=== PATIENT | female | born 1960 | race Caucasian/White ===

== ENCOUNTER 2017-01-28 22:13 | Emergency (ER) | payer OTHER, BC, MEDICARE ==
[~2017-01-28] VITALS: Ht 157.5 cm; Wt 56.7 kg
[~2017-01-28 22:13] MED LIST: CLOB15CR2 TP; DESO15OI3 TP; DULO20CA17 PO; FLUO60SO2 TP; FLUR50TA PO; GABA-585 PO; HYDR200T PO; HYDR473S51 PO; NAPR250T2 PO; PRED1TAB3 PO; RANI150T6 PO
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
[2017-01-28] MEDS ORDERED: MORPHINE SULFATE 4 MG/ML DISP.SYRIN. IV/SQ PRN (23:15)
[2017-01-28] MEDS ORDERED: ONDANSETRON PF 4 MG/2 ML VIAL. IV ONE (23:30)
[2017-01-28] MEDS ORDERED: IV NORMAL SALINE 1000ML BAG 1,000 ML IV SCH (23:30)
[2017-01-29 00:16] LABS: WHITE BLOOD COUNT 5.2 x10^3/uL (4.0-11.0)
[2017-01-29 00:17] LABS: BASO # 0.2 x10^3/uL (0.0-0.2); BASO % 3 % (0-3); EOS % 14 % (0-3); HEMOGLOBIN 11.8 g/dL (12.0-15.5); LYMPH # 1.2 x10^3/uL (1.0-4.8); LYMPH % 23 % (24-48); MEAN CORPUSCULAR HEMOGLOBIN 28 pg (25-35); MEAN CORPUSCULAR HGB CONC 31 g/dL (31-37); MEAN CORPUSCULAR VOLUME 90 fL (79-100); MONO % 11 % (0-9); NEUT % 48 % (31-73); PLATELET COUNT 172 x10^3/uL (140-400); RED BLOOD COUNT 4.23 x10^6/uL (3.50-5.40); RED CELL DISTRIBUTION WIDTH 13.5 % (11.5-14.5)
[2017-01-29 00:26] LABS: CALCIUM 8.7 mg/dL (8.5-10.1); CREATININE 0.7 mg/dL (0.6-1.0); GFR 86.6; POTASSIUM 3.3 mmol/L (3.5-5.1)
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
[2017-01-29] MEDS ORDERED: IBUP-1027 PO (02:03)
[2017-01-29] MEDS ORDERED: HYDR-971 PO (02:03)
[2017-01-29 02:29] VITALS: BP 108/72
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
== END 2017-01-29 02:40 | disposition home or self-care (01) ==
LOC: ER 22:13
DX: S16.1XXA Strain of muscle, fascia and tendon at neck level, initial encounter (principal); S29.012A Strain of muscle and tendon of back wall of thorax, initial encounter; S49.92XA Unspecified injury of left shoulder and upper arm, initial encounter; M25.511 Pain in right shoulder; R51 Headache; I10 Essential (primary) hypertension; M06.9 Rheumatoid arthritis, unspecified; H54.0 Blindness, both eyes; F12.10 Cannabis abuse, uncomplicated; Z88.0 Allergy status to penicillin; V49.50XA Passenger injured in collision with unspecified motor vehicles in traffic accident, initial encounter; Y93.89 Activity, other specified; Y92.410 Unspecified street and highway as the place of occurrence of the external cause; Y99.8 Other external cause status
CPT/HCPCS: 36415; 70450; 71010; 72125; 72128; 80048; 85027; 96361; 96374; 96375; 99285; J2270; J2405; J7030

== ENCOUNTER 2017-07-17 21:26 | Inpatient (IN) | payer BC, MEDICARE ==
[~2017-07-17] VITALS: Ht 157.5 cm; Wt 51.7 kg
[~2017-07-17 21:26] MED LIST changes: +HYDR-971 PO; +IBUP-1027 PO; -NAPR250T2 PO; +NAPR250T6 PO
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
[2017-07-17] MEDS ORDERED: MORPHINE SULFATE 2 MG/ML DISP.SYRIN. IV/SQ PRN (21:45)
[2017-07-17] MEDS ORDERED: IPRATRPIUM/ALBUTEROL 0.5/2.5MG 3 ML NEBU. NEB ONE (22:00)
[2017-07-17] MEDS ORDERED: ONDANSETRON PF 4 MG/2 ML VIAL. IV ONE (22:00)
[2017-07-17] MEDS ORDERED: IV NORMAL SALINE 1000ML BAG 1,000 ML IV SCH (22:00)
[2017-07-17 22:07] LABS: BASO # 0.1 x10^3/uL (0.0-0.2); BASO % 1 % (0-3); EOS % 3 % (0-3); HEMOGLOBIN 12.1 g/dL (12.0-15.5); LYMPH # 0.7 x10^3/uL (1.0-4.8); LYMPH % 10 % (24-48); MEAN CORPUSCULAR HEMOGLOBIN 28 pg (25-35); MEAN CORPUSCULAR HGB CONC 32 g/dL (31-37); MEAN CORPUSCULAR VOLUME 89 fL (79-100); MONO % 14 % (0-9); NEUT % 71 % (31-73); PLATELET COUNT 221 x10^3/uL (140-400); RED BLOOD COUNT 4.26 x10^6/uL (3.50-5.40); RED CELL DISTRIBUTION WIDTH 14.1 % (11.5-14.5); WHITE BLOOD COUNT 6.8 x10^3/uL (4.0-11.0)
[2017-07-17 22:18] LABS: PROTHROMBIN TIME PATIENT 12.7 SEC (11.7-14.0)
[2017-07-17 22:20] LABS: CALCIUM 9.4 mg/dL (8.5-10.1); CREATININE 0.9 mg/dL (0.6-1.0); GFR 64.5; POTASSIUM 3.3 mmol/L (3.5-5.1)
[2017-07-17 22:27] LABS: ALBUMIN 3.7 g/dL (3.4-5.0); TOTAL BILIRUBIN 0.5 mg/dL (0.2-1.0); TOTAL PROTEIN 7.3 g/dL (6.4-8.2)
[2017-07-17 22:34] LABS: CKMB MASS 0.6 ng/mL (0.0-3.6)
[2017-07-17] MEDS ORDERED: CONTRAST GIVEN MC PRN (22:45)
[2017-07-17] MEDS ORDERED: IOHEXOL 300 MG/ML 75 ML VIAL IV ONE (23:00)
[2017-07-18] VITALS (8 sets, daily range): BP systolic 90–155; BP diastolic 60–97
[2017-07-18] MEDS ORDERED: IPRATRPIUM/ALBUTEROL 0.5/2.5MG 3 ML NEBU. NEB ONE
--- NOTE | 2017-07-18 00:16 | RAD ---
CT chest, abdomen and pelvis with contrast HISTORY: Shortness of breath, chest pain, left-sided abdominal pain TECHNIQUE: Helical CT imaging of the chest, abdomen and pelvis with 75 mL Omnipaque 300 intravenous contrast. Chest findings: Pulmonary vessels, thoracic aorta and esophagus are unremarkable. Heart size is normal. No adenopathy in the chest. Discoid atelectasis of the lower lobes and inferior lingula. Mild dependent groundglass density left upper lobe and medial right lung apex likely additional areas of atelectasis. No pleural effusions. Bones unremarkable. Abdomen findings: At segment 4A of the liver there is a 2 cm hypodense lesion with eccentric nodular hypervascular enhancement. 1.5 cm indeterminate hypodense lesion of the spleen. Left renal midpole 1 cm hypodense lesion. Right kidney, adrenal glands, gallbladder, pancreas unremarkable. No bowel obstruction or inflammation. Moderate volume of stool within the colon. Appendix is negative. No abdominal fluid or adenopathy. Bones unremarkable. Pelvis findings: Fibroid uterus. Ovaries poorly visualized obscured by surrounding bowel loops. Urinary bladder wall is thickened and there may be mild edema. Layering density likely contrast within the bladder. Rectum and bones are unremarkable. Mild changes of femoral head osteonecrosis. IMPRESSION: 1. Urinary bladder wall thickening and edema likely cystitis. 2. The appendix is negative. 3. Indeterminate 2 cm hypodense lesion of the liver with eccentric nodular enhancement, possibly a hemangioma. Additional nonspecific hypodense lesions of the spleen and left kidney are present. 4. Fibroid uterus. 5. No acute process in the chest. Exposure: One or more of the following individualized dose reduction techniques were utilized for this examination: 1. Automated exposure control 2. Adjustment of the mA and/or kV according to patient size 3. Use of iterative reconstruction technique Electronically signed by: Khanh Kennedy MD (07/18/2017 12:13 AM) [facility]
[2017-07-18] MEDS ORDERED: ONDANSETRON PF 4 MG/2 ML VIAL. IV PRN ×2 (00:30→08:30)
[2017-07-18] MEDS ORDERED: MORPHINE SULFATE 2 MG/ML DISP.SYRIN. IV PRN (00:30)
[2017-07-18] MEDS ORDERED: FUROSEMIDE 40 MG/4 ML VIAL. IVP ONE (00:30)
[2017-07-18] MEDS ORDERED: BRIM5DRO3 EACHEYE (02:51)
[2017-07-18] MEDS ORDERED: [UNRECOGNIZED DRUG - CODE] PO (02:51)
[2017-07-18] MEDS ORDERED: ALEN70TA5 PO (02:51)
[2017-07-18] MEDS ORDERED: CHON250C PO (02:51)
[2017-07-18] MEDS ORDERED: LEFLUNOMIDE20 MG PO (02:51)
[2017-07-18] MEDS ORDERED: GLUC100018 PO (02:51)
[2017-07-18] MEDS ORDERED: AMLO5TAB2 PO (02:51)
[2017-07-18] MEDS ORDERED: FLUO10TA PO (02:51)
[2017-07-18] MEDS ORDERED: CALC600T4 PO (02:51)
[2017-07-18] MEDS ORDERED: MULT1TAB52 PO (02:51)
[2017-07-18] MEDS ORDERED: HYDR-2766 PO (02:51)
[2017-07-18] MEDS ORDERED: FOLI1TAB16 PO (02:51)
[2017-07-18] MEDS ORDERED: GABA800T2 PO (02:51)
--- NOTE | 2017-07-18 06:14 | EKG ---
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
[2017-07-18] MEDS: IPRATRPIUM/ALBUTEROL 0.5/2.5MG 3 ML NEBU. NEB SCH ×4 (07:19→21:07)
--- NOTE | 2017-07-18 07:37 | RAD ---
Indication: Wheezing and cough. Technique: Upright portable chest radiograph was obtained and compared to a study from January 29, 2017. Findings: The lungs are clear. There is no pleural effusion. Allowing for portable technique, the heart is not enlarged and there is no heart failure. Bony structures are intact, mild curvature of the thoracic and lumbar spine, reverse S-shaped. Impression: No acute thoracic findings.
[2017-07-18] MEDS ORDERED: HYDROcodone/APAP 5/325MG 1 TAB TABLET PO PRN (08:30)
[2017-07-18] MEDS ORDERED: IBUPROFEN 400 MG TABLET. PO PRN (08:30)
[2017-07-18] MEDS ORDERED: HYDROcodone/APAP 10/325 1 TAB TABLET PO PRN (08:30)
[2017-07-18] MEDS ORDERED: NON FORMULARY ITEM (Alendronate Sodium 70 MG) PO SCH (09:00)
[2017-07-18] MEDS ORDERED: [UNRECOGNIZED DRUG - OTHER] PO SCH (09:00)
[2017-07-18] MEDS ORDERED: NON FORMULARY ITEM (Multivitamin (Multivitamins) 1 TAB) PO SCH (09:00)
[2017-07-18] MEDS ORDERED: NON FORMULARY ITEM (Glucosamine Sulfate 2KCL (Glucosamine) 1,000 MG) PO SCH (09:00)
--- NOTE | 2017-07-18 09:00 | PDOC1 ---
History and Physical Date of Admission Date of Admission DATE: 07/18/17 TIME: 08:52 Identification/Chief Complaint Chief Complaint abd pain, chronic, chest pains. 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 BUt she also complains of abd pain that seems to be worse 15-20 mins after a meal. She claims she has been referred to GI by her PCP Dr. Lorenz and c scope done which was not completed? or maybe benign findings, She was told by PCP to avoid dairy products, She still gets the "groaning in her abd" and she feels sometimes the leftside is tense ir fluid filled. CT scan shows some hemangioma, liver, signs of chronic cystitis and the rest unimpressive. She denies recurrent UTI that she knows of. LIpase 800s, and was admitted for "pancreatits". NO nausea, emesis, weight loss , So far no diarrhea reported. WIth regards to CP, some cough, pleuritic, denies fever, she points towards her throat Past Medical History Cardiovascular: HTN GI: GERD Psych: Depression Past Surgical History Past Surgical History: No pertinent history Family History Family History: No Significant Social History Smoke: No ALCOHOL: none Drugs: None Current Problem List Problem List Problems Medical Problems: (1) Abdominal pain Status: Acute (2) Dyspnea and respiratory abnormalities Status: Acute (3) Pancreatitis Status: Acute Problems: Current Medications Current Medications Current Medications Morphine Sulfate 2 mg PRN Q15MIN PRN IV/SQ PAIN GREATER THAN 3/10; Start 07/17 at 21:45; Stop 07/18/17 at 21:44 Sodium Chloride 1,000 ml @ 100 mls/hr Q10H IV Last administered on 07/17/17 21:54; Start 07/17/17 at 22:00; Stop 07/18/17 at 07:59; Status DC Ondansetron HCl (Zofran) 4 mg 1X ONCE IV Last administered on 07/17/17 21:54 ; Start 07/17/17 at 22:00; Stop 07/17/17 at 22:01; Status DC Albuterol/ Ipratropium (Duoneb) 3 ml 1X ONCE NEB Last administered on 21:57; Start 07/17/17 at 22:00; Stop 07/17/17 at 22:01; Status DC Iohexol (Omnipaque 300 Mg/ml) 75 ml 1X ONCE IV Last administered on 23:24; Start 07/17/17 at 23:00; Stop 07/17/17 at 23:01; Status DC Info (Do NOT chart on this entry -- for MONITORING) 1 each PRN DAILY PRN MC SEE COMMENTS; Start 07/17/17 at 22:45; Stop 07/19/17 at 22:44 Albuterol/ Ipratropium (Duoneb) 3 ml 1X ONCE NEB Last administered on 23:45; Start 07/18/17 at 00:00; Stop 07/18/17 at 00:01; Status DC Furosemide (Lasix) 40 mg 1X ONCE IVP Last administered on 07/18/17 00:39; Start 07/18/17 at 00:30; Stop 07/18/17 at 00:31; Status DC Ondansetron HCl (Zofran) 4 mg PRN Q8HRS PRN IV NAUSEA/VOMITING; Start at 00:30; Stop 07/18/17 at 08:27; Status DC Morphine Sulfate 2 mg PRN Q2HR PRN IV SEVERE PAIN Last administered on 04:01; Start 07/18/17 at 00:30; Stop 07/19/17 at 00:29 Albuterol/ Ipratropium (Duoneb) 3 ml RTQID NEB Last administered on 07/18/17 07:19; Start 07/18/17 at 08:00; Stop 07/19/17 at 07:59 Ondansetron HCl (Zofran) 4 mg PRN Q6HRS PRN IV NAUSEA/VOMITING; Start at 08:30; Stop 07/19/17 at 08:29 Amlodipine Besylate (Norvasc) 5 mg DAILY PO ; Start 07/18/17 at 09:00 Folic Acid (Folic Acid) 1 mg DAILY PO ; Start 07/18/17 at 09:00 Acetaminophen/ Hydrocodone Bitart (Lortab 10/325) 1 tab PRN Q6HRS PRN PO PAIN; Start 07/18/17 at 08:30 Acetaminophen/ Hydrocodone Bitart (Lortab 5/325) 1 tab TID PRN PO PAIN; Start 07/18/17 at 08:30 Ibuprofen (Motrin) 400 mg Q6HRS PRN PO INFLAMMATION; Start 07/18/17 at 08:30 Non-Formulary Medication 70 mg WEEKLY PO ; Start 07/18/17 at 09:00; Status UNV Brimonidine Tartrate (Alphagan) 1 drop BID OU ; Start 07/18/17 at 09:00 Calcium Carbonate/ Glycine (Oscal) 500 mg DAILY PO ; Start 07/18/17 at 09:00 Non-Formulary Medication 250 mg DAILY PO ; Start 07/18/17 at 09:00; Status UNV Fluoxetine HCl (PROzac) 10 mg DAILY PO ; Start 07/18/17 at 09:00 Gabapentin (Neurontin) 800 mg DAILY PO ; Start 07/18/17 at 09:00 Non-Formulary Medication 1,000 mg DAILY PO ; Start 07/18/17 at 09:00; Status UNV Leflunomide (Arava) 20 mg DAILY PO ; Start 07/18/17 at 09:00 Multivitamins (Thera M Plus) 1 tab DAILY PO ; Start 07/18/17 at 09:00 Non-Formulary Medication 1 tab DAILY PO ; Start 07/18/17 at 09:00; Status UNV Active Scripts Active Ibuprofen 400 Mg Tablet 400 Mg PO Q6HRS PRN [place] 5-325 Tablet (Acetaminophen/Hydrocodone Bitart) 1 Each Tablet 1-2 Tab PO Q4-6HRS PRN Reported Multivitamins (Multivitamin) 1 Each Tablet 1 Tab PO DAILY Leflunomide 20 Mg Tablet 20 Mg PO DAILY Hydrocodone-Apap 10-325 (Hydrocodone Bit/Acetaminophen) 1 Each Tablet 1 Tab PO PRN Q6HRS PRN Glucosamine (Glucosamine Sulfate 2KCL) 1,000 Mg Tablet 1,000 Mg PO DAILY Gabapentin 800 Mg Tablet 800 Mg PO DAILY Folic Acid 1 Mg Tablet 1 Mg PO DAILY Fluoxetine Hcl 10 Mg Tablet 10 Mg PO DAILY Chondroitin Sulfate (Chondroitin Sulfate A) 250 Mg Capsule 250 Mg PO DAILY Calcium (Calcium Carbonate) 600 Mg Tablet 600 Mg PO DAILY Hair, Skin and Nails Tablet (Multivit-Min/Iron/Folic/Ptg436) 1 Each Tablet 1 Each PO DAILY Amlodipine Besylate 5 Mg Tablet 5 Mg PO DAILY Alphagan P (Brimonidine Tartrate) 5 Ml Drops 1 Drop EACHEYE BID Alendronate Sodium 70 Mg Tablet 70 Mg PO WEEKLY Allergies Allergies: Coded Allergies: Penicillins (Unverified Allergy, Severe, Swelling, 02/16/15) ROS Review of System as per HPI, all else is neg Physical Exam General: Alert, Oriented X3, Cooperative, No acute distress HEENT: Atraumatic, PERRLA, EOMI Lungs: Clear to auscultation, Normal air movement Heart: S1S2, RRR, no thrills, no rubs, no gallops, no murmurs Cardiovascular: S1 Abdomen: Soft, No hepatosplenomegaly Rectal Exam: not examined PELVIC: Nml ext genitalia Extremities: No clubbing, No cyanosis, No edema, Normal pulses, No tenderness/ swelling Skin: No rashes, No breakdown, No significant lesion Neuro: Normal gait, Normal speech, Strength at 5/5 X4 ext, Normal tone, Sensation intact, Cranial nerves 3-12 NL, Reflexes 2+ Psych/Mental Status: Mental status NL, Mood NL Vitals Vitals Vital Signs Date Time Temp Pulse Resp B/P (MAP) Pulse Ox O2 Delivery O2 Flow Rate FiO2 07/18/17 07:23 93 Nasal Cannula 1.5 07/18/17 07:13 98.2 98 16 109/76 (87) 98.2 Labs Labs Laboratory Tests Test 07/17/17 22:00 07/18/17 06:15 White Blood Count 6.8 x10^3/uL (4.0-11.0) Red Blood Count 4.26 x10^6/uL (3.50-5.40) Hemoglobin 12.1 g/dL (12.0-15.5) Hematocrit 38.0 % (36.0-47.0) Mean Corpuscular Volume 89 fL (79-100) Mean Corpuscular Hemoglobin 28 pg (25-35) Mean Corpuscular Hemoglobin Concent 32 g/dL (31-37) Red Cell Distribution Width 14.1 % (11.5-14.5) Platelet Count 221 x10^3/uL (140-400) Neutrophils (%) (Auto) 71 % (31-73) Lymphocytes (%) (Auto) 10 % (24-48) Monocytes (%) (Auto) 14 % (0-9) Eosinophils (%) (Auto) 3 % (0-3) Basophils (%) (Auto) 1 % (0-3) Neutrophils # (Auto) 4.9 x10^3uL (1.8-7.7) Lymphocytes # (Auto) 0.7 x10^3/uL (1.0-4.8) Monocytes # (Auto) 1.0 x10^3/uL (0.0-1.1) Eosinophils # (Auto) 0.2 x10^3/uL (0.0-0.7) Basophils # (Auto) 0.1 x10^3/uL (0.0-0.2) Prothrombin Time 12.7 SEC (11.7-14.0) Prothromb Time International Ratio 1.0 (0.8-1.1) Activated Partial Thromboplast Time 29 SEC (24-38) Sodium Level 143 mmol/L (136-145) Potassium Level 3.3 mmol/L (3.5-5.1) Chloride Level 105 mmol/L (98-107) Carbon Dioxide Level 30 mmol/L (21-32) Anion Gap 8 (6-14) Blood Urea Nitrogen 10 mg/dL (7-20) Creatinine 0.9 mg/dL (0.6-1.0) Estimated GFR (Cockcroft-Gault) 64.5 BUN/Creatinine Ratio 11 (6-20) Glucose Level 105 mg/dL (70-99) Calcium Level 9.4 mg/dL (8.5-10.1) Total Bilirubin 0.5 mg/dL (0.2-1.0) Aspartate Amino Transf (AST/SGOT) 15 U/L (15-37) Alanine Aminotransferase (ALT/SGPT) 15 U/L (14-59) Alkaline Phosphatase 92 U/L (46-116) Creatine Kinase 75 U/L (26-192) Creatine Kinase MB (Mass) 0.6 ng/mL (0.0-3.6) Creatine Kinase MB Relative Index 0.8 % (0-4) Troponin I Quantitative < 0.017 ng/mL (0.000-0.055) < 0.017 ng/mL (0.000-0.055) HL-Xay-F-Type Natriuretic Peptide 672 pg/mL (0-124) Total Protein 7.3 g/dL (6.4-8.2) Albumin 3.7 g/dL (3.4-5.0) Albumin/Globulin Ratio 1.0 (1.0-1.7) Lipase 820 U/L (73-393) Laboratory Tests Test 07/17/17 22:00 07/18/17 06:15 White Blood Count 6.8 x10^3/uL (4.0-11.0) Red Blood Count 4.26 x10^6/uL (3.50-5.40) Hemoglobin 12.1 g/dL (12.0-15.5) Hematocrit 38.0 % (36.0-47.0) Mean Corpuscular Volume 89 fL (79-100) Mean Corpuscular Hemoglobin 28 pg (25-35) Mean Corpuscular Hemoglobin Concent 32 g/dL (31-37) Red Cell Distribution Width 14.1 % (11.5-14.5) Platelet Count 221 x10^3/uL (140-400) Neutrophils (%) (Auto) 71 % (31-73) Lymphocytes (%) (Auto) 10 % (24-48) Monocytes (%) (Auto) 14 % (0-9) Eosinophils (%) (Auto) 3 % (0-3) Basophils (%) (Auto) 1 % (0-3) Neutrophils # (Auto) 4.9 x10^3uL (1.8-7.7) Lymphocytes # (Auto) 0.7 x10^3/uL (1.0-4.8) Monocytes # (Auto) 1.0 x10^3/uL (0.0-1.1) Eosinophils # (Auto) 0.2 x10^3/uL (0.0-0.7) Basophils # (Auto) 0.1 x10^3/uL (0.0-0.2) Prothrombin Time 12.7 SEC (11.7-14.0) Prothromb Time International Ratio 1.0 (0.8-1.1) Activated Partial Thromboplast Time 29 SEC (24-38) Sodium Level 143 mmol/L (136-145) Potassium Level 3.3 mmol/L (3.5-5.1) Chloride Level 105 mmol/L (98-107) Carbon Dioxide Level 30 mmol/L (21-32) Anion Gap 8 (6-14) Blood Urea Nitrogen 10 mg/dL (7-20) Creatinine 0.9 mg/dL (0.6-1.0) Estimated GFR (Cockcroft-Gault) 64.5 BUN/Creatinine Ratio 11 (6-20) Glucose Level 105 mg/dL (70-99) Calcium Level 9.4 mg/dL (8.5-10.1) Total Bilirubin 0.5 mg/dL (0.2-1.0) Aspartate Amino Transf (AST/SGOT) 15 U/L (15-37) Alanine Aminotransferase (ALT/SGPT) 15 U/L (14-59) Alkaline Phosphatase 92 U/L (46-116) Creatine Kinase 75 U/L (26-192) Creatine Kinase MB (Mass) 0.6 ng/mL (0.0-3.6) Creatine Kinase MB Relative Index 0.8 % (0-4) Troponin I Quantitative < 0.017 ng/mL (0.000-0.055) < 0.017 ng/mL (0.000-0.055) AS-Wjd-K-Type Natriuretic Peptide 672 pg/mL (0-124) Total Protein 7.3 g/dL (6.4-8.2) Albumin 3.7 g/dL (3.4-5.0) Albumin/Globulin Ratio 1.0 (1.0-1.7) Lipase 820 U/L (73-393) VTE Prophylaxis Ordered VTE Prophylaxis Devices: Yes VTE Pharmacological Prophylaxi: Yes Assessment/Plan Assessment/Plan 1. Acute on chronic abd pain, difftls include GERD, PUD? Non ulcer dyspepsia etc - claims worse 15-20 mins after a meal, CT abd unimpressive; get GI 2. CP, pleuritic, non cardiac in nature - monitor for now, cough med,CXR normal , await GI work up,could be GI in etiology -s he motions from her chest going up to her throat 3. BLind from glaucoma 4. Depression NOS 5. HTN, controlled Plan: Resume home meds PT/OT PPI GI consult GOt [id number] IV at er and now is incontinent with urine Supportive cough meds etc Dw RN at bedside and pt - agrees with my plan OK for liquid diet - no evidence acute panc on ct scan Recheck lipase tmr RINA JIMENEZ MD Jul 18, 2017 09:00
[2017-07-18] MEDS: FLUoxetine HCL 10 MG CAPSULE PO SCH (09:22)
[2017-07-18] MEDS: FOLIC ACID 1 MG TABLET. PO SCH (09:22)
[2017-07-18] MEDS: amLODIPine BESYLATE 5 MG TABLET PO SCH (09:23)
[2017-07-18] MEDS: CALCIUM CARBONATE 500 MG TABLET PO SCH (09:23)
[2017-07-18] MEDS: LEFLUNOMIDE 10 MG TABLET. PO SCH (09:25)
[2017-07-18] MEDS: GABAPENTIN 400 MG CAPSULE. PO SCH (09:25)
[2017-07-18] MEDS: MULTIVITAMIN with MINERAL TABLET. PO SCH (09:26)
[2017-07-18] MEDS: BRIMONIDINE 0.2% OPHTH SOLUTION 5ML BOTTLE. OU SCH ×2 (09:26→21:48)
[2017-07-18] MEDS: PANTOPRAZOLE 40 MG TABLET.DR. PO SCH (09:28)
[2017-07-18] MEDS: guaiFENesin DM 200MG/20MG 10 ML SYRUP PO SCH ×4 (09:28→21:48)
--- NOTE | 2017-07-18 11:09 | PDOC2 ---
GI CONSULT Reason For Consult: Constant chronic abd pain HPI: HPI: 57 y/o visually impaired female evaluated in ER for abd pain, admitted. Reports left-sided discomfort for months. Associated vomiting and diarrhea ( one or the other after eating) w/ fluctuating weight and loud "gurgling." Pain improves after stooling and is not necessarily worse after eating. Apparently tried avoidance of dairy, unhelpful. Tums might help. Also describes prepping for colonoscopy but had complications w/ low HR and elevated BP so unclear if procedure actually performed (started at [facility], was transferred to [facility] then saw cardiology @ [facility] as outpt, says event monitor was normal). No previous EGD. No gallbladder, pancreas, or liver history.Denies reflux/ heartburn, dysphagia, constipation. Unsure about hematemesis, hematochezia, or melena w/ blindness. H/o RA and SLE; she's not sure the names of her meds, but per summary on leflunomide. Also note ibuprofen. Labs: notable for elevated lipase (820). CT chest/A/P: (complete report below), note normal esophagus, nonspecific hypodense lesions in liver, spleen, and left kidney, normal pancreas and gallbladder, moderate stool in colon, fibroid uterus, likely cystitis. PMH: PMH: HTN, depression, RA, SLE FH: Family History: No pertinent hx (denies GI cancers) Social History: Smoke: No ALCOHOL: rare Drugs: None ROS: GEN: Denies fevers, chills, sweats HEENT: visually impaired CV: Denies chest pain RESP: Denies shortness of air, cough GI: Per HPI : Denies hematuria, dysuria ENDO: fluctuating weight NEURO: Denies confusion, dizziness MSK: Denies weakness, joint pain/swelling SKIN: Denies jaundice, pruritus Vitals: Vitals: Vital Signs Date Time Temp Pulse Resp B/P (MAP) Pulse Ox O2 Delivery O2 Flow Rate FiO2 07/18/17 10:36 98.6 84 16 150/80 (103) 99 Nasal Cannula 2.0 98.6 Labs: Labs: Laboratory Tests Test 07/17/17 22:00 07/18/17 06:15 White Blood Count 6.8 x10^3/uL (4.0-11.0) Red Blood Count 4.26 x10^6/uL (3.50-5.40) Hemoglobin 12.1 g/dL (12.0-15.5) Hematocrit 38.0 % (36.0-47.0) Mean Corpuscular Volume 89 fL (79-100) Mean Corpuscular Hemoglobin 28 pg (25-35) Mean Corpuscular Hemoglobin Concent 32 g/dL (31-37) Red Cell Distribution Width 14.1 % (11.5-14.5) Platelet Count 221 x10^3/uL (140-400) Neutrophils (%) (Auto) 71 % (31-73) Lymphocytes (%) (Auto) 10 % (24-48) Monocytes (%) (Auto) 14 % (0-9) Eosinophils (%) (Auto) 3 % (0-3) Basophils (%) (Auto) 1 % (0-3) Neutrophils # (Auto) 4.9 x10^3uL (1.8-7.7) Lymphocytes # (Auto) 0.7 x10^3/uL (1.0-4.8) Monocytes # (Auto) 1.0 x10^3/uL (0.0-1.1) Eosinophils # (Auto) 0.2 x10^3/uL (0.0-0.7) Basophils # (Auto) 0.1 x10^3/uL (0.0-0.2) Prothrombin Time 12.7 SEC (11.7-14.0) Prothromb Time International Ratio 1.0 (0.8-1.1) Activated Partial Thromboplast Time 29 SEC (24-38) Sodium Level 143 mmol/L (136-145) Potassium Level 3.3 mmol/L (3.5-5.1) Chloride Level 105 mmol/L (98-107) Carbon Dioxide Level 30 mmol/L (21-32) Anion Gap 8 (6-14) Blood Urea Nitrogen 10 mg/dL (7-20) Creatinine 0.9 mg/dL (0.6-1.0) Estimated GFR (Cockcroft-Gault) 64.5 BUN/Creatinine Ratio 11 (6-20) Glucose Level 105 mg/dL (70-99) Calcium Level 9.4 mg/dL (8.5-10.1) Total Bilirubin 0.5 mg/dL (0.2-1.0) Aspartate Amino Transf (AST/SGOT) 15 U/L (15-37) Alanine Aminotransferase (ALT/SGPT) 15 U/L (14-59) Alkaline Phosphatase 92 U/L (46-116) Creatine Kinase 75 U/L (26-192) Creatine Kinase MB (Mass) 0.6 ng/mL (0.0-3.6) Creatine Kinase MB Relative Index 0.8 % (0-4) Troponin I Quantitative < 0.017 ng/mL (0.000-0.055) < 0.017 ng/mL (0.000-0.055) LX-Imv-Y-Type Natriuretic Peptide 672 pg/mL (0-124) Total Protein 7.3 g/dL (6.4-8.2) Albumin 3.7 g/dL (3.4-5.0) Albumin/Globulin Ratio 1.0 (1.0-1.7) Lipase 820 U/L (73-393) Allergies: Coded Allergies: Penicillins (Unverified Allergy, Severe, Swelling, 02/16/15) Medications: Current Medications Medications (Trade) Dose Ordered Sig/Lobito Route PRN Reason Start Time Stop Time Status Last Admin Dose Admin Sodium Chloride 1,000 ml @ 100 mls/hr Q10H IV 07/17/17 22:00 07/18/17 07:59 DC 07/17/17 21:54 Ondansetron HCl (Zofran) 4 mg 1X ONCE IV 07/17/17 22:00 07/17/17 22:01 DC 07/17/17 21:54 Albuterol/ Ipratropium (Duoneb) 3 ml 1X ONCE NEB 07/17/17 22:00 07/17/17 22:01 DC 07/17/17 21:57 Iohexol (Omnipaque 300 Mg/ml) 75 ml 1X ONCE IV 07/17/17 23:00 07/17/17 23:01 DC 07/17/17 23:24 Albuterol/ Ipratropium (Duoneb) 3 ml 1X ONCE NEB 07/18/17 00:00 07/18/17 00:01 DC 07/17/17 23:45 Furosemide (Lasix) 40 mg 1X ONCE IVP 07/18/17 00:30 07/18/17 00:31 DC 07/18/17 00:39 Morphine Sulfate 2 mg PRN Q2HR PRN IV SEVERE PAIN 07/18/17 00:30 07/19/17 00:29 07/18/17 04:01 Albuterol/ Ipratropium (Duoneb) 3 ml RTQID NEB 07/18/17 08:00 07/19/17 07:59 07/18/17 07:19 Amlodipine Besylate (Norvasc) 5 mg DAILY PO 07/18/17 09:00 07/18/17 09:23 Folic Acid (Folic Acid) 1 mg DAILY PO 07/18/17 09:00 07/18/17 09:22 Brimonidine Tartrate (Alphagan) 1 drop BID OU 07/18/17 09:00 07/18/17 09:26 Calcium Carbonate/ Glycine (Oscal) 500 mg DAILY PO 07/18/17 09:00 07/18/17 09:23 Fluoxetine HCl (PROzac) 10 mg DAILY PO 07/18/17 09:00 07/18/17 09:22 Gabapentin (Neurontin) 800 mg DAILY PO 07/18/17 09:00 07/18/17 09:25 Leflunomide (Arava) 20 mg DAILY PO 07/18/17 09:00 07/18/17 09:25 Multivitamins (Thera M Plus) 1 tab DAILY PO 07/18/17 09:00 07/18/17 09:26 Pantoprazole Sodium (Protonix) 40 mg DAILYAC PO 07/18/17 09:00 07/18/17 09:28 Guaifenesin (Robitussin Dm) 10 ml QID PO 07/18/17 09:00 07/18/17 09:28 Imaging: Imaging: CXR Impression: No acute thoracic findings. CT chest/A/P Chest findings: Pulmonary vessels, thoracic aorta and esophagus are unremarkable. Heart size is normal. No adenopathy in the chest. Discoid atelectasis of the lower lobes and inferior lingula. Mild dependent groundglass density left upper lobe and medial right lung apex likely additional areas of atelectasis. No pleural effusions. Bones unremarkable. Abdomen findings: At segment 4A of the liver there is a 2 cm hypodense lesion with eccentric nodular hypervascular enhancement. 1.5 cm indeterminate hypodense lesion of the spleen. Left renal midpole 1 cm hypodense lesion. Right kidney, adrenal glands, gallbladder, pancreas unremarkable. No bowel obstruction or inflammation. Moderate volume of stool within the colon. Appendix is negative. No abdominal fluid or adenopathy. Bones unremarkable. Pelvis findings: Fibroid uterus. Ovaries poorly visualized obscured by surrounding bowel loops. Urinary bladder wall is thickened and there may be mild edema. Layering density likely contrast within the bladder. Rectum and bones are unremarkable. Mild changes of femoral head osteonecrosis. IMPRESSION: 1. Urinary bladder wall thickening and edema likely cystitis. 2. The appendix is negative. 3. Indeterminate 2 cm hypodense lesion of the liver with eccentric nodular enhancement, possibly a hemangioma. Additional nonspecific hypodense lesions of the spleen and left kidney are present. 4. Fibroid uterus. 5. No acute process in the chest. PE: GEN: NAD, up to chair HEENT: visually impaired LUNGS: CTAB HEART: RRR ABD: NABS, S/ND, far left discomfort EXTREMITY: No edema SKIN: No rashes, no jaundice NEURO/PSYCH: A & O 3 A/P: A/P: Left-sided pain, vomiting, diarrhea -ongoing for awhile; pain improves w/ stooling, either has vomiting or diarrhea after eating -CT: nonspecific hypodense lesions in liver, spleen, and left kidney, normal pancreas and gallbladder, moderate stool in colon, fibroid uterus, likely cystitis Elevated lipase CRC screen -prepped for colonoscopy recently, unclear if incomplete or perhaps never actually performed ---> says transferred from [facility] to [facility] w/ HTN and bradycardia Visual impairment, SLE and RA -- Pain is not c/w pancreatitis; however, has autoimmune history and vomiting. Agree w/ PPI. ?diarrhea w/ moderate stool on CT. Will add Miralax PRN. Will check US r/o gallstones as source for elevated lipase. Additionally will check CA19-9, lipid panel, and IgG4. GREG LEMUS Jul 18, 2017 11:09
[2017-07-18] MEDS ORDERED: POLYETHYLENE GLYCOL 3350 17 GM PACKET. PO PRN (11:30)
[2017-07-18 11:37] LABS: CHOLESTEROL/HDL RATIO 1.8
[2017-07-19 03:00] VITALS: BP 119/80
[2017-07-19] MEDS: guaiFENesin DM 200MG/20MG 10 ML SYRUP PO SCH ×2 (06:45→13:48)
[2017-07-19] MEDS: IPRATRPIUM/ALBUTEROL 0.5/2.5MG 3 ML NEBU. NEB SCH (07:08)
[2017-07-19 07:24] VITALS: BP 117/85
--- NOTE | 2017-07-19 08:44 | RAD ---
Indication: Elevated lipase. Vomiting. Technique: Right upper quadrant ultrasound was performed. Comparison is a CT from yesterday. Findings: The visualized pancreas is unremarkable. IVC is patent. The liver is normal in size and echotexture. The lesion noted in the anterior segment of the right hepatic lobe on previous CT was not visualized by ultrasound. Gallbladder is negative. Common bile duct is within normal limits at 4 mm. Right kidney is without hydronephrosis or mass. Impression: 1. No acute abdominal findings. 2. Right hepatic lobe lesion noted by CT was not able to be visualized by ultrasound.
[2017-07-19] MEDS: PANTOPRAZOLE 40 MG TABLET.DR. PO SCH (09:10)
[2017-07-19] MEDS: BRIMONIDINE 0.2% OPHTH SOLUTION 5ML BOTTLE. OU SCH (09:10)
[2017-07-19] MEDS: FOLIC ACID 1 MG TABLET. PO SCH (09:10)
[2017-07-19] MEDS: FLUoxetine HCL 10 MG CAPSULE PO SCH (09:10)
[2017-07-19] MEDS: CALCIUM CARBONATE 500 MG TABLET PO SCH (09:10)
[2017-07-19] MEDS: GABAPENTIN 400 MG CAPSULE. PO SCH (09:10)
[2017-07-19] MEDS: LEFLUNOMIDE 10 MG TABLET. PO SCH (09:10)
[2017-07-19] MEDS: amLODIPine BESYLATE 5 MG TABLET PO SCH (09:10)
[2017-07-19] MEDS: MULTIVITAMIN with MINERAL TABLET. PO SCH (09:11)
[2017-07-19] MEDS ORDERED: MAGNESIUM HYDROXIDE 2,400 MG/30 ML ORAL.SUSP. PO PRN (09:30)
[2017-07-19] MEDS ORDERED: MAGNESIUM HYDROXIDE 2,400 MG/30 ML ORAL.SUSP. PO ONE (09:45)
[2017-07-19] MEDS ORDERED: DOCUSATE SODIUM 100 MG CAPSULE. PO SCH (10:00)
[2017-07-19] MEDS ORDERED: PANT40TA3 PO (10:12)
--- NOTE | 2017-07-19 10:16 | PDOC ---
PROGRESS NOTES Chief Complaint Chief Complaint 1. Acute on chronic abd pain, difftls include GERD, PUD? Non ulcer dyspepsia etc - claims worse 15-20 mins after a meal, CT abd unimpressive; get GI 2. CP, pleuritic, non cardiac in nature - monitor for now, cough med,CXR normal , await GI work up,could be GI in etiology -s he motions from her chest going up to her throat 3. BLind from glaucoma 4. Depression NOS 5. HTN, controlled History of Present Illness History of Present Illness Better today BUt worried about when she gets home, it will happen again Just takes rolaids at home Wants to go home Liapse now normal US normal CA 19-9 pending Says last BM was tuesday bec she has not been eating from adb pain PLAN: Upgrade to reg diet PPI rx in chart Ff up GI as OP Bowel regimen If ok with GI to dc later - im ok with that MAybe bentyl to home? Await GI recs Vitals Vitals Vital Signs Date Time Temp Pulse Resp B/P (MAP) Pulse Ox O2 Delivery O2 Flow Rate FiO2 07/19/17 09:10 83 117/85 07/19/17 07:24 98.5 16 93 Nasal Cannula 2.0 98.5 Physical Exam General: Alert, Oriented X3, Cooperative, No acute distress Abdomen: Soft, No hepatosplenomegaly Extremities: No clubbing, No cyanosis, No edema, Normal pulses, No tenderness/ swelling Skin: No rashes, No breakdown, No significant lesion Labs LABS Laboratory Tests Test 07/18/17 12:20 07/19/17 06:00 Troponin I Quantitative < 0.017 ng/mL (0.000-0.055) Lipase 91 U/L (73-393) Review of Systems Review of Systems abd pain after eating, no cp, soa, emesis or fever Assessment and Plan Assessmemt and Plan Problems Medical Problems: (1) Abdominal pain Status: Acute (2) Dyspnea and respiratory abnormalities Status: Acute (3) Pancreatitis Status: Acute Problems: Comment Review of Relevant I have reviewed the following items poncho (where applicable) has been applied. Labs Laboratory Tests Test 07/17/17 22:00 07/18/17 06:15 07/18/17 12:20 07/19/17 06:00 White Blood Count 6.8 x10^3/uL (4.0-11.0) Red Blood Count 4.26 x10^6/uL (3.50-5.40) Hemoglobin 12.1 g/dL (12.0-15.5) Hematocrit 38.0 % (36.0-47.0) Mean Corpuscular Volume 89 fL (79-100) Mean Corpuscular Hemoglobin 28 pg (25-35) Mean Corpuscular Hemoglobin Concent 32 g/dL (31-37) Red Cell Distribution Width 14.1 % (11.5-14.5) Platelet Count 221 x10^3/uL (140-400) Neutrophils (%) (Auto) 71 % (31-73) Lymphocytes (%) (Auto) 10 % (24-48) Monocytes (%) (Auto) 14 % (0-9) Eosinophils (%) (Auto) 3 % (0-3) Basophils (%) (Auto) 1 % (0-3) Neutrophils # (Auto) 4.9 x10^3uL (1.8-7.7) Lymphocytes # (Auto) 0.7 x10^3/uL (1.0-4.8) Monocytes # (Auto) 1.0 x10^3/uL (0.0-1.1) Eosinophils # (Auto) 0.2 x10^3/uL (0.0-0.7) Basophils # (Auto) 0.1 x10^3/uL (0.0-0.2) Prothrombin Time 12.7 SEC (11.7-14.0) Prothromb Time International Ratio 1.0 (0.8-1.1) Activated Partial Thromboplast Time 29 SEC (24-38) Sodium Level 143 mmol/L (136-145) Potassium Level 3.3 mmol/L (3.5-5.1) Chloride Level 105 mmol/L (98-107) Carbon Dioxide Level 30 mmol/L (21-32) Anion Gap 8 (6-14) Blood Urea Nitrogen 10 mg/dL (7-20) Creatinine 0.9 mg/dL (0.6-1.0) Estimated GFR (Cockcroft-Gault) 64.5 BUN/Creatinine Ratio 11 (6-20) Glucose Level 105 mg/dL (70-99) Calcium Level 9.4 mg/dL (8.5-10.1) Total Bilirubin 0.5 mg/dL (0.2-1.0) Aspartate Amino Transf (AST/SGOT) 15 U/L (15-37) Alanine Aminotransferase (ALT/SGPT) 15 U/L (14-59) Alkaline Phosphatase 92 U/L (46-116) Creatine Kinase 75 U/L (26-192) Creatine Kinase MB (Mass) 0.6 ng/mL (0.0-3.6) Creatine Kinase MB Relative Index 0.8 % (0-4) Troponin I Quantitative < 0.017 ng/mL (0.000-0.055) < 0.017 ng/mL (0.000-0.055) < 0.017 ng/mL (0.000-0.055) QW-Ivw-P-Type Natriuretic Peptide 672 pg/mL (0-124) Total Protein 7.3 g/dL (6.4-8.2) Albumin 3.7 g/dL (3.4-5.0) Albumin/Globulin Ratio 1.0 (1.0-1.7) Lipase 820 U/L (73-393) 91 U/L (73-393) Triglycerides Level 39 mg/dL (0-150) Cholesterol Level 138 mg/dL (0-200) LDL Cholesterol, Calculated 54 mg/dL (0-100) VLDL Cholesterol, Calculated 8 mg/dL (0-40) Non-HDL Cholesterol Calculated 62 mg/dL (0-129) HDL Cholesterol 76 mg/dL (40-60) Cholesterol/HDL Ratio 1.8 Laboratory Tests Test 07/18/17 12:20 07/19/17 06:00 Troponin I Quantitative < 0.017 ng/mL (0.000-0.055) Lipase 91 U/L (73-393) Medications Current Medications Morphine Sulfate 2 mg PRN Q15MIN PRN IV/SQ PAIN GREATER THAN 3/10; Start 07/17 at 21:45; Stop 07/18/17 at 21:44; Status DC Sodium Chloride 1,000 ml @ 100 mls/hr Q10H IV Last administered on 07/17/17t 21:54; Start 07/17/17 at 22:00; Stop 07/18/17 at 07:59; Status DC Ondansetron HCl (Zofran) 4 mg 1X ONCE IV Last administered on 07/17/17 21:54 ; Start 07/17/17 at 22:00; Stop 07/17/17 at 22:01; Status DC Albuterol/ Ipratropium (Duoneb) 3 ml 1X ONCE NEB Last administered on 21:57; Start 07/17/17 at 22:00; Stop 07/17/17 at 22:01; Status DC Iohexol (Omnipaque 300 Mg/ml) 75 ml 1X ONCE IV Last administered on 23:24; Start 07/17/17 at 23:00; Stop 07/17/17 at 23:01; Status DC Info (Do NOT chart on this entry -- for MONITORING) 1 each PRN DAILY PRN MC SEE COMMENTS; Start 07/17/17 at 22:45; Stop 07/19/17 at 22:44 Albuterol/ Ipratropium (Duoneb) 3 ml 1X ONCE NEB Last administered on 23:45; Start 07/18/17 at 00:00; Stop 07/18/17 at 00:01; Status DC Furosemide (Lasix) 40 mg 1X ONCE IVP Last administered on 07/18/17 00:39; Start 07/18/17 at 00:30; Stop 07/18/17 at 00:31; Status DC Ondansetron HCl (Zofran) 4 mg PRN Q8HRS PRN IV NAUSEA/VOMITING; Start at 00:30; Stop 07/18/17 at 08:27; Status DC Morphine Sulfate 2 mg PRN Q2HR PRN IV SEVERE PAIN Last administered on 04:01; Start 07/18/17 at 00:30; Stop 07/19/17 at 00:29; Status DC Albuterol/ Ipratropium (Duoneb) 3 ml RTQID NEB Last administered on 07/19/17 07:08; Start 07/18/17 at 08:00; Stop 07/19/17 at 07:59; Status DC Ondansetron HCl (Zofran) 4 mg PRN Q6HRS PRN IV NAUSEA/VOMITING; Start at 08:30; Stop 07/19/17 at 08:29; Status DC Amlodipine Besylate (Norvasc) 5 mg DAILY PO Last administered on 07/19/17 09: 10; Start 07/18/17 at 09:00 Folic Acid (Folic Acid) 1 mg DAILY PO Last administered on 07/19/17 09:10; Start 07/18/17 at 09:00 Acetaminophen/ Hydrocodone Bitart (Lortab 10/325) 1 tab PRN Q6HRS PRN PO PAIN; Start 07/18/17 at 08:30 Acetaminophen/ Hydrocodone Bitart (Lortab 5/325) 1 tab TID PRN PO PAIN; Start 07/18/17 at 08:30 Ibuprofen (Motrin) 400 mg Q6HRS PRN PO INFLAMMATION; Start 07/18/17 at 08:30 Non-Formulary Medication 70 mg WEEKLY PO ; Start 07/18/17 at 09:00; Status UNV Brimonidine Tartrate (Alphagan) 1 drop BID OU Last administered on 07/19/17 09:10; Start 07/18/17 at 09:00 Calcium Carbonate/ Glycine (Oscal) 500 mg DAILY PO Last administered on 09:10; Start 07/18/17 at 09:00 Non-Formulary Medication 250 mg DAILY PO ; Start 07/18/17 at 09:00; Status UNV Fluoxetine HCl (PROzac) 10 mg DAILY PO Last administered on 07/19/17 09:10; Start 07/18/17 at 09:00 Gabapentin (Neurontin) 800 mg DAILY PO Last administered on 07/19/17 09:10; Start 07/18/17 at 09:00 Non-Formulary Medication 1,000 mg DAILY PO ; Start 07/18/17 at 09:00; Status UNV Leflunomide (Arava) 20 mg DAILY PO Last administered on 07/19/17 09:10; Start 07/18/17 at 09:00 Multivitamins (Thera M Plus) 1 tab DAILY PO Last administered on 07/19/17 09: 11; Start 07/18/17 at 09:00 Non-Formulary Medication 1 tab DAILY PO ; Start 07/18/17 at 09:00; Status UNV Pantoprazole Sodium (Protonix) 40 mg DAILYAC PO Last administered on 09:10; Start 07/18/17 at 09:00 Guaifenesin (Robitussin Dm) 10 ml QID PO Last administered on 07/19/17t 06:45 ; Start 07/18/17 at 09:00 Polyethylene Glycol (miraLAX PACKET) 17 gm PRN DAILY PRN PO CONSTIPATION; Start 07/18/17 at 11:30 Magnesium Hydroxide (Milk Of Magnesia) 2,400 mg PRN DAILY PRN PO CONSTIPATION; Start 07/19/17 at 09:30 Magnesium Hydroxide (Milk Of Magnesia) 2,400 mg 1X ONCE PO ; Start 07/19/17 at 09:45; Stop 07/19/17 at 09:46; Status DC Docusate Sodium (Colace) 100 mg BID PO ; Start 07/19/17 at 10:00 Active Scripts Active Ibuprofen 400 Mg Tablet 400 Mg PO Q6HRS PRN [place] 5-325 Tablet (Acetaminophen/Hydrocodone Bitart) 1 Each Tablet 1-2 Tab PO Q4-6HRS PRN Reported Multivitamins (Multivitamin) 1 Each Tablet 1 Tab PO DAILY Leflunomide 20 Mg Tablet 20 Mg PO DAILY Hydrocodone-Apap 10-325 (Hydrocodone Bit/Acetaminophen) 1 Each Tablet 1 Tab PO PRN Q6HRS PRN Glucosamine (Glucosamine Sulfate 2KCL) 1,000 Mg Tablet 1,000 Mg PO DAILY Gabapentin 800 Mg Tablet 800 Mg PO DAILY Folic Acid 1 Mg Tablet 1 Mg PO DAILY Fluoxetine Hcl 10 Mg Tablet 10 Mg PO DAILY Chondroitin Sulfate (Chondroitin Sulfate A) 250 Mg Capsule 250 Mg PO DAILY Calcium (Calcium Carbonate) 600 Mg Tablet 600 Mg PO DAILY Hair, Skin and Nails Tablet (Multivit-Min/Iron/Folic/[id number]) 1 Each Tablet 1 Each PO DAILY Amlodipine Besylate 5 Mg Tablet 5 Mg PO DAILY Alphagan P (Brimonidine Tartrate) 5 Ml Drops 1 Drop EACHEYE BID Alendronate Sodium 70 Mg Tablet 70 Mg PO WEEKLY Vitals/I & O Vital Sign - Last 24 Hours 07/18/17 07/18/17 07/18/17 07/18/17 10:36 11:58 14:33 16:11 Temp 98.6 99.1 98.6 99.1 Pulse 84 75 Resp 16 16 B/P (MAP) 150/80 (103) 90/60 (70) Pulse Ox 99 93 92 O2 Delivery Nasal Cannula Nasal Cannula Nasal Cannula Nasal Cannula O2 Flow Rate 2.0 1.5 2.0 1.5 07/18/17 07/18/17 07/18/17 07/18/17 19:00 20:00 21:24 23:00 Temp 98.4 98.7 98.4 98.7 Pulse 75 76 Resp 16 16 B/P (MAP) 117/87 (97) 95/66 (76) Pulse Ox 96 99 98 O2 Delivery Nasal Cannula Nasal Cannula Nasal Cannula Nasal Cannula O2 Flow Rate 2.0 1.5 1.5 2.0 07/19/17 07/19/17 07/19/17 07/19/17 03:00 07:09 07:24 09:10 Temp 98.4 98.5 98.4 98.5 Pulse 71 83 83 Resp 16 16 B/P (MAP) 119/80 (93) 117/85 (96) 117/85 Pulse Ox 94 95 93 O2 Delivery Nasal Cannula Nasal Cannula Nasal Cannula O2 Flow Rate 2.0 1.0 2.0 Intake and Output 07/19/17 07/19/17 07/20/17 15:00 23:00 07:00 Intake Total 240 ml Balance 240 ml RINA JIMENEZ MD Jul 19, 2017 10:16
[2017-07-19 10:29] VITALS: BP 115/79
--- NOTE | 2017-07-19 12:47 | PDOC ---
Subjective: Subjective: Denies pain. Tolerating PO. Has questions about blood pressure and if pursuing colonoscopy as outpt would be safe. Objective: Vital Signs: Vital Signs Date Time Temp Pulse Resp B/P (MAP) Pulse Ox O2 Delivery O2 Flow Rate FiO2 07/19/17 10:29 98.4 104 16 115/79 (91) 97 Nasal Cannula 2.0 98.4 Labs: Laboratory Tests Test 07/19/17 06:00 Lipase 91 U/L Imaging: RUQ US Findings: The visualized pancreas is unremarkable. IVC is patent. The liver is normal in size and echotexture. The lesion noted in the anterior segment of the right hepatic lobe on previous CT was not visualized by ultrasound. Gallbladder is negative. Common bile duct is within normal limits at 4 mm. Right kidney is without hydronephrosis or mass. Impression: 1. No acute abdominal findings. 2. Right hepatic lobe lesion noted by CT was not able to be visualized by ultrasound. PE: GEN: NAD, sitting in chair eating lunch LUNGS: CTAB HEART: tachycardic ABD: S/ND/NT NEURO/PSYCH: A & O 3 A/P: Left-sided pain, vomiting, diarrhea - resolved -CT: nonspecific hypodense lesions in liver, spleen, and left kidney, normal pancreas and gallbladder, moderate stool in colon, fibroid uterus, likely cystitis -US as above Elevated lipase - resolved -h/o SLE and RA -CA19-9 and IgG4 pending, lipids ok -- Symptoms resolved, lipase now WNL. DC per primary. Continue PPI, also Miralax PRN. Follow-up re: pending lab results. Consider outpt colonoscopy since apparently not performed recently. 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 GREG LEMSU Jul 19, 2017 12:46
--- NOTE | 2017-07-19 15:14 | PDOC3 ---
Discharge Summary Visit Information Date of Admission: Jul 18, 2017 Date of Discharge: Jul 19, 2017 Admitting Diagnosis Comment: 1. Acute on chronic abd pain, difftls include GERD, PUD? Non ulcer dyspepsia etc - claims worse 15-20 mins after a meal, CT abd unimpressive; get GI 2. CP, pleuritic, non cardiac in nature - monitor for now, cough med,CXR normal , await GI work up,could be GI in etiology -s he motions from her chest going up to her throat 3. BLind from glaucoma 4. Depression NOS 5. HTN, controlled Final Diagnosis Problems Medical Problems: (1) Abdominal pain Status: Acute (2) Dyspnea and respiratory abnormalities Status: Acute (3) Pancreatitis Status: Acute Brief Hospital Course Allergies Allergies Coded Allergies Type Severity Reaction Last Updated Verified Penicillins Allergy Severe Swelling 02/16/15 No Vital Signs Vital Signs Date Time Temp Pulse Resp B/P (MAP) Pulse Ox O2 Delivery O2 Flow Rate FiO2 07/19/17 10:29 98.4 104 16 115/79 (91) 97 Nasal Cannula 2.0 98.4 Lab Results Laboratory Tests Test 07/17/17 22:00 07/18/17 06:15 07/18/17 12:20 07/19/17 06:00 White Blood Count 6.8 x10^3/uL (4.0-11.0) Red Blood Count 4.26 x10^6/uL (3.50-5.40) Hemoglobin 12.1 g/dL (12.0-15.5) Hematocrit 38.0 % (36.0-47.0) Mean Corpuscular Volume 89 fL (79-100) Mean Corpuscular Hemoglobin 28 pg (25-35) Mean Corpuscular Hemoglobin Concent 32 g/dL (31-37) Red Cell Distribution Width 14.1 % (11.5-14.5) Platelet Count 221 x10^3/uL (140-400) Neutrophils (%) (Auto) 71 % (31-73) Lymphocytes (%) (Auto) 10 % (24-48) Monocytes (%) (Auto) 14 % (0-9) Eosinophils (%) (Auto) 3 % (0-3) Basophils (%) (Auto) 1 % (0-3) Neutrophils # (Auto) 4.9 x10^3uL (1.8-7.7) Lymphocytes # (Auto) 0.7 x10^3/uL (1.0-4.8) Monocytes # (Auto) 1.0 x10^3/uL (0.0-1.1) Eosinophils # (Auto) 0.2 x10^3/uL (0.0-0.7) Basophils # (Auto) 0.1 x10^3/uL (0.0-0.2) Prothrombin Time 12.7 SEC (11.7-14.0) Prothromb Time International Ratio 1.0 (0.8-1.1) Activated Partial Thromboplast Time 29 SEC (24-38) Sodium Level 143 mmol/L (136-145) Potassium Level 3.3 mmol/L (3.5-5.1) Chloride Level 105 mmol/L (98-107) Carbon Dioxide Level 30 mmol/L (21-32) Anion Gap 8 (6-14) Blood Urea Nitrogen 10 mg/dL (7-20) Creatinine 0.9 mg/dL (0.6-1.0) Estimated GFR (Cockcroft-Gault) 64.5 BUN/Creatinine Ratio 11 (6-20) Glucose Level 105 mg/dL (70-99) Calcium Level 9.4 mg/dL (8.5-10.1) Total Bilirubin 0.5 mg/dL (0.2-1.0) Aspartate Amino Transf (AST/SGOT) 15 U/L (15-37) Alanine Aminotransferase (ALT/SGPT) 15 U/L (14-59) Alkaline Phosphatase 92 U/L (46-116) Creatine Kinase 75 U/L (26-192) Creatine Kinase MB (Mass) 0.6 ng/mL (0.0-3.6) Creatine Kinase MB Relative Index 0.8 % (0-4) Troponin I Quantitative < 0.017 ng/mL (0.000-0.055) < 0.017 ng/mL (0.000-0.055) < 0.017 ng/mL (0.000-0.055) UL-Cxj-D-Type Natriuretic Peptide 672 pg/mL (0-124) Total Protein 7.3 g/dL (6.4-8.2) Albumin 3.7 g/dL (3.4-5.0) Albumin/Globulin Ratio 1.0 (1.0-1.7) Lipase 820 U/L (73-393) 91 U/L (73-393) Triglycerides Level 39 mg/dL (0-150) Cholesterol Level 138 mg/dL (0-200) LDL Cholesterol, Calculated 54 mg/dL (0-100) VLDL Cholesterol, Calculated 8 mg/dL (0-40) Non-HDL Cholesterol Calculated 62 mg/dL (0-129) HDL Cholesterol 76 mg/dL (40-60) Cholesterol/HDL Ratio 1.8 Laboratory Tests Test 07/19/17 06:00 Lipase 91 U/L (73-393) Brief Hospital Course Ms. Fitzpatrick is a 57 old AA female blind form glaucoma admitted for chronic abd pain PCP is reffering to GI as OP for further w.up, work up here neg, except for mild elevated lipase but CT neg for pancreatitis, Better after ovenright with IVF and liquid diet and pain meds. , GI advised PPI, HOme today with new PPI, Seen and examined 2 visits today,1 progress note Dw RN and pt herself Discharge Information Condition at Discharge: Improved, Stable Disposition/Orders: D/C to Home Scheduled Alendronate Sodium (Alendronate Sodium), 70 MG PO WEEKLY, (Reported) Amlodipine Besylate (Amlodipine Besylate), 5 MG PO DAILY, (Reported) Brimonidine Tartrate (Alphagan P), 1 DROP EACHEYE BID, (Reported) Calcium Carbonate (Calcium), 600 MG PO DAILY, (Reported) Chondroitin Sulfate A (Chondroitin Sulfate), 250 MG PO DAILY, (Reported) Fluoxetine Hcl (Fluoxetine Hcl), 10 MG PO DAILY, (Reported) Folic Acid (Folic Acid), 1 MG PO DAILY, (Reported) Gabapentin (Gabapentin), 800 MG PO DAILY, (Reported) Glucosamine Sulfate 2KCL (Glucosamine), 1,000 MG PO DAILY, (Reported) Leflunomide (Leflunomide), 20 MG PO DAILY, (Reported) Multivit-Min/Iron/Folic/Psi085 (Hair, Skin and Nails Tablet), 1 EACH PO DAILY, ( Reported) Multivitamin (Multivitamins), 1 TAB PO DAILY, (Reported) Pantoprazole Sodium (Protonix), 1 TAB PO DAILY Scheduled PRN Hydrocodone Bit/Acetaminophen (Hydrocodone-Apap 10-325 ), 1 TAB PO PRN Q6HRS PRN for PAIN, (Reported) Hydrocodone/Apap 5-325 ([place] 5-325 Tablet), 1-2 TAB PO Q4-6HRS PRN for PAIN Ibuprofen (Ibuprofen), 400 MG PO Q6HRS PRN for INFLAMMATION Discontinued Medications Clobetasol Propionate/Emoll (Clobetasol Emollient 0.05% Crm), 15 GM TP, ( Reported) Desonide (Desonide), 15 GM TP, (Reported) Duloxetine Hcl (Duloxetine Hcl), 20 MG PO BID, (Reported) Fluocinolone Acetonide (Fluocinolone Acetonide), 60 ML TP, (Reported) Flurbiprofen (Flurbiprofen), 50 MG PO, (Reported) Gabapentin (Gabapentin), 100 MG PO TID, (Reported) Hydrocodone Bit/Acetaminophen (Hycet 7.5 Mg-325 Mg/15 Ml Soln), 5 ML PO Q4-6 HOURS PRN for PAIN, (Reported) Hydroxychloroquine Sulfate (Plaquenil), 200 MG PO BID, (Reported) Naproxen (Naproxen), 250 MG PO, (Reported) Prednisone (Prednisone), 1 MG PO DAILY, (Reported) Ranitidine Hcl (Zantac), 150 MG PO BID, (Reported) RINA JIMENEZ MD Jul 19, 2017 15:14
[2017-07-19 22:13] LABS: IGG1 678 mg/dL (248-810); IGG2 271 mg/dL (130-555); IGG3 82 mg/dL (15-102); IGG4 8 mg/dL (2-96); TOTAL IGG 981 mg/dL (700-1600)
[2017-07-20 07:38] LABS: CA 19-9 11 U/mL (0-35)
== END 2017-07-19 14:16 | disposition home or self-care (01) | DRG 440 ==
LOC: ER 21:26 → 5 NORTH 07-18 00:20
PROVIDERS: ADMIT Internal Medicine; ATTEND Internal Medicine
DX: K85.90 Acute pancreatitis without necrosis or infection, unspecified (principal); M32.9 Systemic lupus erythematosus, unspecified; F32.9 Major depressive disorder, single episode, unspecified; G89.29 Other chronic pain; H40.9 Unspecified glaucoma; H54.8 Legal blindness, as defined in USA; I10 Essential (primary) hypertension; K21.9 Gastro-esophageal reflux disease without esophagitis; F12.90 Cannabis use, unspecified, uncomplicated; Z88.0 Allergy status to penicillin; Z60.2 Problems related to living alone
CPT/HCPCS: 36415; 71010; 71260; 74177; 76705; 80053; 80061; 82550; 82553; 82787; 83690; 83880; 84484; 85025; 85610; 85730; 86301; 93005; 94250; 94640; 94760; 96374; 96375; J1940; J2270; J2405; J7030; J7620; Q9967; 99285-25